=== PATIENT | female | born 1990 | race Caucasian/White ===

== ENCOUNTER 2018-04-03 16:30 | Inpatient (IN) | payer OTHER, SELFPAY ==
[2018-04-03 16:05] VITALS: BMI 29.7
[2018-04-03 16:28] LABS: ROM Internal Control Test YES-OK TO RESULT pt. (Internal QC)
[2018-04-03 16:29] LABS: ROM Patient Test POSITIVE (Negative)
[2018-04-03] MEDS: Lactated Ringers 1,000 ML 50 ML IV ×2 (16:53→19:12)
[2018-04-03 17:08] LABS: Hemoglobin 12.8 g/dl (12.0-15.0); Mean Corp Hgb Conc 32.8 g/gl (32-36); Mean Corpuscular Hgb 27.3 pg (27.0-32.0); Mean Corpuscular Volume 83.2 fL (81-99); Mean Platelet Vol. 10.1 fl (6.2-12.0); Platelet Count 233 K/mm3 (150-450); RBC Distribution Width CV 14.9 % (11.6-14.6); Red Blood Count 4.69 M/mm3 (4.2-5.4); White Blood Count 10.5 K/mm3 (4.4-11.0)
[2018-04-03 17:10] LABS: Scan Indicated on CBC? Y/N NO
[2018-04-03] MEDS: Oxytocin 30 units/NS 500 ml 30 UNITS/500 ML IV.SOLN IV (17:24)
--- NOTE | 2018-04-03 18:51 | PCM.HP.OB ---
History Date of Admission: 03/09/16 - L&D triage Final FRANCISCO JAVIER: 03/27/18 Gestational age: 41 Weeks and 0 Days History of this : This is a 27 year-old, G2, P 1, at 41 weeks gestational age with SROM at home, clear fluid- in early labor. pt denies vaginal bleeding. pt offers no other concerns today. Allergies No Known Allergies Allergy (Verified 04/03/18 16:01) Home Medications: Home Medications Vits [Prenatabs FA] 1 tablet PO DAILY 03/09/16 Cetirizine HCl [Zyrtec] 5 mg PO DAILY 04/03/18 Smoking Status: Never smoker Alcohol: None Number of Fetus(es): 1 Heart Tracin mod evan + accels, no decels TOCO Analysis: irregular History Past Pregnancies: Past Pregnancies Delivery Date Name GA/Weeks Outcome Route Weight Infant Gender Labor Length Anesthesia Delivery Location Provider FOB Labs: O+, HEP B neg, HIV neg, Rub imm, GBS NEG Expected Infant Delivery Method: Spontaneous Vaginal Physical Exam General: Alert, Oriented x3 Abdomen: Soft, Gravid Neurological: Cranial nerves II-XII grossly intact Estimated gestational size: Appropriate for gestational size Presentation: Cephalic Cervix Dilation (cm): 4 Station: -2 Effacement (%): 80 Assessment/Plan This is a 27 year-old, G 2, P 1, at 41 weeks gestational age with SROM at home in early labor 1) admit to L&D 2) monitor FHR/TOCO 3) anticipate 4) epidural if requested for pain 5) pitocin
[2018-04-03] MEDS: fentaNYL-bupivacaine (epidural) 100 ML BAG EPIDURAL (21:04)
[2018-04-04] MEDS: Lactated Ringers 1,000 ML 50 ML IV (00:23)
[2018-04-04] MEDS: fentaNYL-bupivacaine (epidural) 100 ML BAG EPIDURAL (02:05)
[2018-04-04] MEDS: Oxytocin 30 units/NS 500 ml 30 UNITS/500 ML IV.SOLN 334 UNITS IV (02:28)
--- NOTE | 2018-04-04 02:40 | PCM.OB.VAG ---
Vaginal Delivery Maternal Presentation: Spontaneous Rupture of Membranes Amniotic Membrane Rupture Type: Spontaneous at home Amniotic Fluid Description: Clear Final FRANCISCO JAVIER: 03/27/18 Gestational age: 41 Weeks and 1 Days Date of Procedure: 04/04/18 Pre-Operative Diagnosis: spontaneous ROM, term gestation, early labor Post-Operative Diagnosis: Live female infant Surgery/ Procedure Performed: Spontaneous Vaginal Delivery Type of Anesthesia: Epidural Description of Procedure: of live female born without complications- Delayed cord clamping performed. Presentation: Vertex Placental Delivery Description: Spontaneous Cord Vessel Description: 3 Vessels Nuchal Cord Compression: Without compression Cord Entanglement: None Drain: Carrion to straight drain Estimated Blood Loss: 300 Infant A gender: Female (1 minute): 8 (5 minute): 8 Episiotomy Description: None Laceration: Perineal Extension/lac, 2nd degree Medications given after delivery: IV Pitocin Complications: None
[2018-04-04] MEDS: Oxytocin 30 units/NS 500 ml 30 UNITS/500 ML IV.SOLN 167 UNITS IV (02:58)
[2018-04-04 08:45] VITALS: BP 117/58; PULSE 83; RESP 16; TEMP 36.3; O2SAT 98
[2018-04-04 12:10] VITALS: BP 105/63; PULSE 80; RESP 16; O2SAT 97
[2018-04-04] MEDS: Acetaminophen 500 MG Tablet 1000 MG PO (15:57)
[2018-04-04 16:06] VITALS: BP 110/65; PULSE 77; RESP 16; TEMP 36.7; O2SAT 97
[2018-04-04] MEDS: Naproxen 250 MG Tablet PO (19:50)
[2018-04-04 20:00] VITALS: BP 109/71; PULSE 80; RESP 16; TEMP 36.6; O2SAT 97
[2018-04-04 23:15] VITALS: BP 107/60; PULSE 93; RESP 16; TEMP 36.6; O2SAT 97
[2018-04-05 02:00] VITALS: BP 111/63; PULSE 75; RESP 16; TEMP 36.8; O2SAT 97
[2018-04-05 08:29] VITALS: BP 113/62; PULSE 83; RESP 16; TEMP 36.8; O2SAT 96
--- NOTE | 2018-04-05 08:35 | PCM.PN.OB ---
Subjective: Doing well per patient and nursing staff. Ambulating and taking PO without difficulty. Voiding and passing flatus. Denies headache, visual changes, chest pain, shortness of breath, increased vaginal bleeding or clots. without difficulty. Naproxen for pain. Planning D/C home today. - Physical Exam General: Alert, Oriented x3, Cooperative Lungs: Clear to auscultation, Normal air movement, No rhonchi, No wheeze Cardiovascular: Regular rate, Regular Rhythm, No murmurs Abdomen: Bowel Sounds Present, Soft, Non Tender, Passing Flatus, - - Fundus firm one below U Extremities: No edema, - - Ivet's negative Musculoskeletal: No Tenderness to Palpation of Joints or Extremities Psych/Mental Status: Normal Affect, Appropriate Vital Signs Temp Pulse Resp BP Pulse Ox 98.3 F 83 16 113/62 96 04/05/18 08:29 04/05/18 08:29 04/05/18 08:29 04/05/18 08:29 04/05/18 08:29 Oxygen Delivery Method Room Air Weight: 162 lb 14.746 oz Body Mass Index (BMI) 29.7 Intake and Output for Last 24 Hours 04/03/18 04/04/18 04/05/18 23:59 23:59 23:59 Intake Total 3500 / 3500 Output Total 200 / 200 2200 / 2200 Balance -200 / -200 1300 / 1300 Medical Necessity - Tobacco Use Smoking Status: Never smoker Assessment/Plan A: PPD#1 Second degree perineal laceration P: 1)Discharge and instructions given. 2) Follow up in 6 weeks 3) D/C home.
--- NOTE | 2018-04-05 08:40 | DCINST_ITS ---
Discharge Diet: No Restrictions Discharge Activity: Return to Normal Activity, May not drive while taking narcotic pain medications., May Shower May resume sexual activity in: 4-6 weeks Weight Bearing Status: Weight bearing as tolerated Call your doctor if your incision/area has: Continuous Slow Oozing, Sudden Increased Bleeding, Increased Pain/ Swelling, Increased Redness, Foul Smelling Discharge Call your doctor if you observe: Fever of 101 or Higher, Numbness or Tingling, Inability to urinate, Inability to have a bowel movement, Using more than one pad per hour, Shortness of breath, Dizziness, Fainting spells, Chest pain, Increased palpitations (irregular heartbeat), Calf discomfort, Uncontrolled pain Additional Instructions: If you experience any of the following, contact your healthcare provider. * Bleeding that soaks a pad every hour for 2 hours * Fever 100.4 or higher * Unrelieved incision or abdominal pain * Swelling, redness, discharge or bleeding from your incision or episiotomy site * Your incision begins to separate * Problems urinating (including inability to urinate or burning while urinating) . * Visual changes * Severe headache * Flu-like symptoms * Pain or redness in one of both of your breasts * Pain, warmth, tenderness or swelling in your legs, especially the calf area * Frequent nausea and vomiting * Symptoms of depression or anxiety If you experience any of the following, call 911 or go to the nearest Emergency Room. * Chest pain * Problems breathing * Seizure activity * Partial or complete paralysis of a body part, slurred speech, weakness or drooping of the face, or a sudden inability to walk or hold your balance Allergies/Adverse Reactions: Allergies No Known Allergies Allergy (Verified 04/03/18 16:01) Medications to take at Discharge Vits [Prenatabs FA] 1 tablet PO DAILY 03/09/16 Cetirizine HCl [Zyrtec] 5 mg PO DAILY 04/03/18 Please Follow Up With: Emily Daniels MD When: Call to make an appointment with your doctor in 6 weeks. If you had elevated Blood Pressure or 4th degree laceration you will need to be seen in 2 weeks. Primary Care Physician: Care Physician,No Primary [Primary Care Provider] - Test Results:
== END 2018-04-05 11:45 | disposition home health service (06) | DRG 775 ==
LOC: WP 22:43 → WPOUT 04-07 07:23
PROVIDERS: Admitting Provider Obstetrics & Gynecology; Visit Provider Obstetrics & Gynecology
DX: O48.0 Post-term pregnancy (principal); Z3A.41 41 weeks gestation of pregnancy; O69.81X0 Labor and delivery complicated by cord around neck, without compression, not applicable or unspecified; O70.1 Second degree perineal laceration during delivery; Z37.0 Single live birth
CPT/HCPCS: 59025; 59050; 84112; 85027; 86850; 86900; 99218; J7120; G0378